=== PATIENT | male | born 1945 | race Caucasian/White ===

== ENCOUNTER 2022-03-20 12:01 | Outpatient (CLI) | payer OTHER, SELFPAY ==
--- NOTE | 2022-03-20 13:08 | ECG_ITS ---
Measurements Intervals [place] Rate: 59 P: 57 MD: 186 QRS: 33 QRSD: 158 T: 15 QT: 448 QTc: 447 Interpretive Statements SINUS BRADYCARDIA RIGHT BUNDLE BRANCH BLOCK ABNORMAL ECG NO PREVIOUS ECG AVAILABLE FOR COMPARISON Electronically Signed On 03-20-2022 13:26:57 [employer] by Anurag Tai D.O.
[2022-03-20 13:40] LABS: Anion Gap 12 mmol/L (8-16); Blood Urea Nitrogen 18 mg/dL (9-20); Calcium 9.4 mg/dL (8.4-10.2); Carbon Dioxide 31 mmol/L (22-30); Chloride 90 mmol/L (98-107); Estimated Glomerular Filt Rate > 60; Glucose 103 mg/dL (65-110); Hemoglobin A1C 5.2 % (<5.7); Potassium 4.1 mmol/L (3.4-5.0); Sodium 133 mmol/L (137-145)
== END 2022-03-20 12:02 | disposition home or self-care (01) ==
LOC: ANHSURGERY 12:07
PROVIDERS: Anesthesiology; PCP Internal Medicine; Visit Provider Urology
DX: N52.9 Male erectile dysfunction, unspecified (principal); I10 Essential (primary) hypertension; Z01.818 Encounter for other preprocedural examination; I45.10 Unspecified right bundle-branch block
CPT/HCPCS: 36415; 80048; 83036; 87086; 93005